=== PATIENT | female | born 1980 | race Caucasian/White ===

== ENCOUNTER 2016-12-01 13:37 | Emergency (ER) | payer MEDICARE, OTHER ==
[~2016-12-01 13:37] MED LIST: ALBUTEROL17 GM INH; BENTYL20 M1 PO; FERRO-TIME325 MG PO; FLECAINIDE ACET50 MG PO; LOMOTIL TABLET1 TAB PO; LOPRESSOR PO; MEGESTROL ACETA40 MG PO; METOPROLOL TAR25 MG PO; MOTRIN400 MG PO; NORVASC10 MG PO; ROXICODONE5 M1 PO; SYNTHROID137 MCG PO; ZOFRAN8 MG PO; ZYRTEC10 M2 PO
[2016-12-01 14:42] LABS: PARTIAL THROMBOPLASTIN TIME 27.7 SECONDS (23.5-31.3)
[2016-12-01 14:53] LABS: BASOPHIL% 0.4 % (0-2.5); EOSINOPHIL# 0.1 X10e3 (0-0.7); EOSINOPHIL% 1.9 % (0.0-7.0); HEMATOCRIT 41.3 % (35.0-45.0); HEMOGLOBIN 13.4 gm/dL (12.0-16.0); LYMPHOCYTE# 0.4 X10e3 (1.0-3.5); LYMPHOCYTE% 9.9 % (17.0-45.0); MEAN CELL VOLUME 96.2 FL (83-96); MEAN CORPUSCULAR HEMOGLOBIN 31.3 PG (28-34); MEAN CORPUSCULAR HGB CONC 32.6 g/dL (30-36); MEAN PLATELET VOLUME 9.8 FL (6.5-11.5); MONOCYTE# 0.1 X10e3 (0-1.0); MONOCYTE% 2.1 % (3.0-12.0); NEUTROPHIL# 3.9 X10e3 (1.5-7.1); NEUTROPHIL% 85.7 % (40-75); PLATELET COUNT 57 X10e3 (140-420); RED BLOOD COUNT 4.29 X10e (3.90-5.30); RED CELL DISTRIBUTION WIDTH 18.8 % (11.0-15.5); WHITE BLOOD COUNT 4.5 X10e3 (4.0-10.5)
[2016-12-01 14:54] LABS: DIFF IND YES
[2016-12-01 14:57] LABS: ANISOCYTOSIS SL; PLATELET ESTIMATE DECREASED (NORMAL)
== END 2016-12-01 15:41 | disposition home or self-care (01) ==
LOC: CED 13:37
PROVIDERS: Emergency Medicine
DX: R04.0 Epistaxis (principal); I10 Essential (primary) hypertension; I48.91 Unspecified atrial fibrillation; Z90.710 Acquired absence of both cervix and uterus; Z90.49 Acquired absence of other specified parts of digestive tract; Z85.038 Personal history of other malignant neoplasm of large intestine
CPT/HCPCS: 36415; 85025; 85610; 85730; 96372; 99283

== ENCOUNTER 2017-05-07 01:36 | Inpatient (IN) | payer MEDICARE ==
[~2017-05-07] VITALS: Ht 167.6 cm; Wt 113.4 kg
--- NOTE | ~2017-05-07 | HP ---
Unit #: [id number] #: [id number] Patient: JAMES SWEENEY [id number] [address] [address] [id number] I MR#: [id number] NAME: JAMES SWEENEY ROOM: 242 Age: 37 Sex: F Admission Date: 05/07/2017 : 1980 Attending Physician: Chari Hastings M.D. Primary Care Physician: Antelmo Gonzales M.D. HISTORY AND PHYSICAL CHIEF COMPLAINT Urinary tract infection, acute kidney injury, dehydration, increasing bilirubin. HISTORY This pleasant, 37-year-old female currently being treated with Stivarga for metastatic colon cancer, was transferred from [facility] emergency department for UTI. Patient has a history of metastatic colon cancer to liver status post 3 liver resections. She failed her previous chemotherapy and was recently started on Stivarga. She states that over the past week, she has been experiencing fevers, sweats, chills, decreased urinary output, decreased p.o. She also has been more fatigued and yesterday developed nausea and vomiting. She, therefore, went to [facility] emergency department where she was diagnosed with a urinary tract infection and acute kidney injury. She was given a dose of Rocephin and bolused with IV fluids. Her labs showed that her bilirubin was increasing. PAST MEDICAL HISTORY 1. Paroxysmal atrial fibrillation diagnosed when admitted 04/2016. Ejection fraction 50% to 55%, trace MR, mild TR on echo. 2. Essential hypertension. 3. Metastatic colon cancer to the liver and right lung status post total colectomy and three liver resections, undergoing chemotherapy. Patient states that she failed previous chemotherapy and was changed to Stivarga recently. Patient is status post three liver resections. 4. Thyroid cancer with total thyroidectomy and subsequent hypothyroidism. 5. Endometrial cancer, status post total abdominal hysterectomy. 6. Legally blind. 7. Previous eye surgery. 8. Cholecystectomy. 9. Colon surgery and liver resections. 10. Thyroidectomy. 11. Hysterectomy. ALLERGIES To Tylenol. HOME MEDICATIONS 1. Oxycodone 5 mg q.4 hours for increasing right flank pain. 2. Metoprolol 50 mg b.i.d. 3. Synthroid 0.137 mg daily. 4. Zyrtec 10 mg daily. Unit #: [id number] #: [id number] Patient: JAMES SWEENEY 5. Stivarga 40 mg b.i.d. 6. Norvasc 10 mg daily. FAMILY HISTORY Colon cancer. SOCIAL HISTORY The patient has been stable, lives with her sister. Lifelong nonsmoker. Does not drink alcohol. REVIEW OF SYSTEMS Notable for nausea, vomiting, fatigue, decreased urinary output, increasing right flank pain, fevers, sweats, chills, colon cancer, thyroid cancer, endometrial cancer, hypertension, PAF, abovementioned surgeries. All other systems were reviewed and otherwise negative. PHYSICAL EXAMINATION GENERAL APPEARANCE: Very pleasant, moderately obese, 37-year-old female with alopecia. VITAL SIGNS: Temperature 97.5, pulse 65, respirations 18, blood pressure 121/75, O2 saturation 96% prior to transfer. HEENT EXAMINATION: Left eye with dense cataract. Patient does have nystagmus and dysconjugate gaze. Pharynx: Somewhat poor dentition, but otherwise benign. NECK: Supple without adenopathy or thyromegaly. CHEST: Clear. Right CVA tenderness. CARDIAC: Normal S1 and S2 without definite murmur. There is a port in the right upper chest. ABDOMEN: Multiple well healed scars are noted. Tender right upper quadrant with hepatomegaly on exam. EXTREMITIES: Notable for deformity of the right ankle. NEURO EXAM: Patient is awake, alert, oriented x3. Her cranial nerves are notable for a dysconjugate gaze, horizontal nystagmus, and legally blind. She has equal strength throughout. Speech is fluent. DIAGNOSTIC STUDIES LABS PRIOR TO ARRIVAL: Hematocrit 35.8, normal white count. Platelet count is 56. Has been low in the past. SMA-12: Chloride 111, CO2 18, BUN 34, creatinine 1.48 (up from a BUN of 16, creatinine of 0.9 in September). Bilirubin 6.8, alk phos 357, AST 77. This is higher than our values in 2016. Magnesium 2.23. Lipase 75. Urinalysis: Positive leukocyte esterase, positive protein, bilirubin, 1+ bacteria, 5-10 red cells, 10-20 white cells. IMAGING: Chest x-ray: No acute disease. ASSESSMENT 1. Urinary tract infection. 2. Acute kidney injury/dehydration. 3. Metastatic colon cancer to liver and right lung with increasing bilirubin despite Stivarga. 4. Hypothyroidism, status post thyroidectomy for thyroid cancer. 5. Status post total abdominal hysterectomy for endometrial cancer. 6. Legally blind. 7. Essential hypertension. 8. Chronic thrombocytopenia. 9. Paroxysmal atrial fibrillation. Unit #: [id number] #: [id number] Patient: JAMES SWEENEY PLANS 1. IV fluids. 2. Rocephin. 3. SCDs for DVT prophylaxis. 4. Recheck labs this morning and check coags. 5. Consult patient's oncologist. Dictated by June Acuna/pc TD: 05/07/2017 06:49 JOB #: [id number] HISTORY AND PHYSICAL Page 1 of 1 X Chari Hastings MD X HISTORY AND PHYSICAL
--- NOTE | ~2017-05-07 | DS ---
Unit #: [id number] #: [id number] Patient: JAMES SWEENEY [id number] [address] [address] [id number] I MR#: [id number] NAME: JAMES SWEENEY ROOM: 225 Age: 37 Sex: F Admission Date: 05/07/2017 : 1980 Discharge Date: 05/13/2017 Attending Physician: Ryann Wild M.D. Primary Care Physician: Antelmo Gonzales M.D. DISCHARGE SUMMARY ADMISSION DIAGNOSES 1. Urinary tract infection. 2. Acute kidney injury/dehydration. 3. Metastatic colon cancer to liver and right lung with increasing bilirubin despite Stivarga. 4. Hypothyroidism, status post thyroidectomy for thyroid cancer. 5. Status post abdominal hysterectomy for endometrial cancer. 6. Legally blind. 7. Essential hypertension. 8. Chronic thrombocytopenia. 9. Paroxysmal atrial fibrillation. DISCHARGE DIAGNOSES 1. Urinary retention, resolved. 2. Extended spectrum beta lactamases Escherichia coli urinary tract infection, completed five days of IV meropenem. 3. Metastatic colon cancer to liver and right lung. 4. Stomatitis, secondary to recent Stivarga therapy. 5. Acute kidney injury/dehydration, resolved. CONSULTANTS 1. Mitchell Townsend M.D., Hematology/Oncology. 2. Registered dietitian. CONDITION Stable. DISPOSITION Home with family. DISCHARGE MEDICATIONS 1. Zofran ODT 4 mg p.o. q.6 hours p.r.n. nausea. 2. Amlodipine besylate 10 mg p.o. daily. 3. Toprol XL 50 mg p.o. b.i.d. 4. Robitussin 10 mL p.o. q.4 hours p.r.n. cough over the counter. 5. Roxicodone 5 mg p.o. q.6 hours as needed for pain per home prescription, no prescription written today. 6. Synthroid 137 mcg p.o. daily. 7. Gina's Magic Mouthwash 5 mL gargle and swish for mucositis/stomatitis q.i.d. p.r.n. mouth soreness. 8. The patient is not to resume Stivarga 40 mg p.o. q.i.d. until advised to do so by Dr. Moreno and Dr. Townsend. DISCHARGE INSTRUCTIONS Unit #: [id number] #: [id number] Patient: JAMES SWEENEY 1. Patient is to follow up with Dr. Moreno/Dr. Townsend per their instructions for further oncologic evaluation and management. 2. Patient is not to resume Stivarga until advised to do so by her oncologist. 3. Patient is to call and schedule a followup appointment with her primary care physician in five to seven days. 4. Patient is to continue the current diet recommendation until mouth sores heal, specifically this is regular diet with soft moist foods either cold or at room temperature. She is to avoid acidic, spicy foods, and caffeinated/carbonated drinks. She may use ice chips or popsicles as desired. She is to encourage adequate fluid intake. Please note, the patient ordered chocolate Ensure Enlive daily, and patient may continue this at home after discharge. HOSPITAL COURSE The patient is a 37-year-old female, who was transferred to [facility] from [facility] Emergency Department for further evaluation and management of urinary tract infection. The patient is known to have a history of metastatic colon cancer to the liver and history of three liver resections. She failed previous chemotherapy and was recently started on Stivarga by her oncologist. The patient was noted to develop fatigue as well as nausea and vomiting in addition to fever, sweats, chills, and decreased urinary output, and decreased p.o. intake. Upon presentation to [facility] Emergency Department, she was diagnosed with a UTI as well as ABRAM. She was treated with bolused IV fluids as well as Rocephin IV. Patient was also noted to have hyperbilirubinemia which was increasing at that time. Please refer to history and physical report for complete details. Patient was admitted to the hospital for further evaluation and management of her condition. Urine culture and sensitivity returned positive for ESBL E. coli UTI and the patient was treated with IV meropenem 500 mg IV q.8 hours with start date May 09, 2017. Today is her fifth day of IV antibiotic therapy for urinary tract infection. The patient initially required placement of a Lo catheter. The catheter was discontinued this morning and the patient is voiding without difficulty or complaint at this time. Per discussion with Dr. Wild, the patient's IV meropenem will be discontinued as this is day five of IV antibiotic therapy. Please refer to discharge and followup instructions above. Patient was noted to have an acute kidney injury secondary to dehydration from decreased p.o. intake on admission. The patient's creatinine was as high as 1.3, but is at 1 today. She is tolerating food and fluids well, although she has experienced stomatitis/mucositis likely secondary to recent Stivarga therapy. Patient was started on Gina's Magic Mouthwash yesterday and registered dietitian was consulted for recommendations to assist with maintenance of oral intake. Patient stating her mouth feels better today. She will continue Gina's Magic Mouthwash as directed and as needed at home. She has been advised to continue her current diet recommendations as dictated above until mouth sores heal. She is afebrile with vital signs stable. She has been evaluated both by Dr. Townsend and Dr. Widl today and cleared for discharge home. Dictated by... Gloria Mcknight A.P.R.N. for Ryann Wild M.D. Unit #: [id number] #: [id number] Patient: JAMES SWEENEY CATHY/katina TD: 05/14/2017 08:57 JOB #: [id number] DISCHARGE SUMMARY Page 1 of 1 X Gloria Mcknight APRN X DISCHARGE SUMMARY
--- NOTE | ~2017-05-07 | A ---
[facility] Nutrition Therapy DATE: 05/12/17 Patient: JAMES SWEENEY Physician: DORINA Address: [address] Room/Bed: [address] [place] [address], Zip: [place] [address] Admit Date: 05/07/17 Date of : [birth year] Height: 5 6 Weight: 249 113.39 NUTRITIONAL ASSESSMENT: REASON: Consult re: "chemo-related stomatitis, recs to help w/ PO intake" Admitting dx: 37 y/o female admitted with UTI, ABRAM, dehydration PMH: PAF, HTN, colon cancer s/p total colectomy w/ mets to R lung and liver s/p 3 liver resections on chemotherapy, thyroid and endometrial cancer s/p thyroidectomy and hysterectomy, della, legally blind L eye Anthropometrics: Ht: 66", Wt: 249 lbs, BMI: 40.4 (stage III obese) Labs: BUN 28, AST 105, ALT 42 Meds: IV Abx, loperamide, solu-cortef I/O & Bowel function: BM 05/11, - N/V Skin Integrity: Reviewed; no nutritionally significant issues, no edema Estimated Nutrition Needs: Increased due to cancer Assessment: Chart reviewed, events noted. See admitting dx and PMH as stated above. Patient has multiple types of cancer, most notably colon cancer with mets to liver and R lung, currently on chemotherapy. Over the past 2 days she has developed stomatitis due to her chemo treatment which has been affecting her PO intake. RD consulted to provide ways to help with PO intake. Of note, high BMI was previously documented by RD on 05/07/17. She is on a regular diet, reports consuming 3 meals per day but with increased difficulty and uncomfortableness. She scored 0 points on the malnutrition risk screen and denies any recent weight loss. She is morbidly obese, however has increased nutrient needs. Prior to admission, she had reported a decrease in PO intake and N/V for 1 week, which is improved. She is legally blind and lives with her sister. RD discussed ways to help with stomatitis and improve oral intake, including consuming soft, moist foods either cold or room temp. Suggested avoidance of rough/coarse foods, acidic/spicy foods, caffeinated/carbonated drinks. Mouth wash to treat her condition has been ordered, but she states she has not yet received it. RD encouraged sucking on ice or popsicles and staying well hydrated. The patient was given a handout on the topics discussed with RD contact info. She is amenable to trying Ensure daily to help meet nutritional needs. She showed good understanding and motivation for the education provided. See recs below. Dx: Predicted suboptimal energy intake r/t stomatitis AEB RD consult, need for diet education and daily ONS. [facility] Nutrition Therapy DATE: 05/12/17 Patient: JAMES SWEENEY Physician: DORINA Address: [address] Room/Bed: [address] [place] [address], Zip: [place] [address] Admit Date: 05/07/17 Date of : [birth year] Height: 5 6 Weight: 249 113.39 Intervention: Daily ONS, diet education, mouth wash Monitoring, Evaluation and Goals: 1. Adequate oral intake 50-100% of meals. 2. Improve oral condition (treatment of stomatitis). Monitor: per protocol, criteria to determine if above goals met Recommendations: 1. Continue regular diet. Encourage soft, moist foods either cold or at room temperature. Avoid acidic/spicy foods and caffeinated/carbonated drinks. Provide ice chips or popsicles as desired. Encourage adequate fluid intake. 2. Daily mouth wash to treat stomatitis. 3. RD ordered daily chocolate Ensure Enlive. Will follow hospital course Mild-moderate nutrition risk Respectfully, Rebekah Smith RD, MARY [facility] cc: client file
--- NOTE | ~2017-05-07 | MR145 ---
[facility] A Service of [facility] & [facility] RADIOLOGY TEXT RESULTS PATIENT: JAMES SWEENEY LOCATION: C2A 242-01 : [birth year] UNIT #: [id number] AGE: [address]: Ryann Wild MD SEX: F ORDER DR: [id number] [facility] [address] [facility] [place], [place] [address] [id number] I MR#: [id number] Acc #: [id number] NAME: JAMES SWEENEY : 1980 SEX: F STUDY DATE/TIME: 05/07/2017 15:11 UNIT: C2 ROOM: 242 STUDY DESCRIPTION: MR MRCP WWo Contrast Attending Physician: Ryann Wild M.D. Ordering Physician: Mitchell Townsend M.D. Primary Care Physician: Antelmo Gonzales M.D. MRI CENTER REPORT This report is preliminary unless electronic signature is present. EXAM MRI abdomen without and with contrast, MRCP. DATE 05/07/2017 HISTORY 37-year-old female with a history of metastatic colon cancer to the liver and right lung with increasing bilirubin levels. Urinary tract infection. History of previous 3 liver resections. Undergoing chemotherapy. COMPARISON CT abdomen and pelvis with contrast 04/03/2017, 12/18/2016. PROCEDURE Multiplanar, multisequence imaging was obtained of the abdomen without and with contrast. 20 mL MultiHance was administered intravenously for the exam. FINDINGS Right hepatectomy changes are present. Three low signal intensity nonenhancing lesions are demonstrated within the liver. The dominant at the dome measures 4.9 x 2.5 cm, and another just inferior to this measures 1.3 cm, and another located more medially measures 1.2 cm. Allowing for respiratory motion degradation and differences in slice selection, these are probably not significantly changed since 04/03/2017. No new liver lesions are identified. Development of a small quantity of upper abdominal ascites. Small right pleural effusion has developed layering to a depth of 1.5 cm and there is posterior right basilar atelectasis or infiltrate. Spleen remains enlarged but stable at 16.2 cm craniocaudally. Pancreas, right adrenal, and bilateral kidneys are within normal limits. Left adrenal lesion STS. [facility] A Service of [facility] & [facility] RADIOLOGY TEXT RESULTS PATIENT: JAMES SWEENEY LOCATION: [facility] 242-01 : [birth year] UNIT #: [id number] AGE: [address]: Ryann Wild MD SEX: F ORDER DR: measuring about 2.4 cm on today's examination is unchanged and demonstrates contrast enhancement consistent with metastatic disease. Mildly prominent lymph node within the right pericardial fat pad measures 1.3 x 1.0 cm, nonspecific but unchanged from prior. MRCP demonstrates no abnormal intrahepatic or extrahepatic biliary ductal dilation. The gallbladder is surgically absent. No abnormal bowel wall thickening is identified. Portions of the colon are surgically absent, demonstrated to better advantage on previous CT exam. IMPRESSION 1. Right hepatectomy changes. The 3 lesions within the residual liver are not appreciably changed in size or morphology, allowing for differences in technique and respiratory motion degradation, compared to the 04/03/2017 examination. Likewise, left adrenal mass, and mildly enlarged right pericardial fat pad lymph node appears stable. 2. Interval development of a small quantity of upper abdominal ascites. 3. Development of a small right pleural effusion with right basilar atelectasis or infiltrate. 4. Stable splenomegaly. 5. Cholecystectomy changes. No abnormal biliary dilation. Dictated by... Danielle Meraz M.D. THIS IS AN ELECTRONICALLY VERIFIED REPORT Danielle Meraz M.D. at 05/08/2017 8:54 AM LILIANA/carey TD: 05/08/2017 00:08 JOB #: [id number] MRI CENTER REPORT Page 1 of 1 COPY
--- NOTE | ~2017-05-07 | CO ---
Unit #: [id number] #: [id number] Patient: CORINNE CLEVELAND [id number] [address] [address] [id number] I MR#: [id number] NAME: CORINNE CLEVELAND ROOM: 242 Age: 37 Sex: F Admission Date: 05/07/2017 : 1980 Attending Physician: Ryann Wild M.D. Primary Care Physician: Antelmo Gonzales M.D. Requesting Physician: Chari Hastings M.D. Consultation Date: 05/07/2017 CONSULTATION REPORT REASON FOR CONSULTATION Metastatic colon cancer with a history of familial polyposis, please evaluate. HISTORY OF PRESENT ILLNESS Corinne Cleveland is well known with a history of longstanding metastatic colon cancer and familial polyposis coli, was currently on treatment with Stivarga. She was admitted to the hospital after being transferred from [facility] emergency room where she was admitted with fever, sweats, chills, decreased urine output along with nausea and vomiting. In the emergency room, she was found to have a urinary tract infection and is currently on IV antibiotics. Her complete metabolic panel done during this admission showed her bilirubin was 6.8, leading in part to this consultation. Ms. Cleveland tells me she feels slightly better today. She was started on regorafenib (Stivarga) on 04/16/2017 for progressive disease. Bilirubin on 04/07/2017 was normal at 1, her alkaline phosphatase of 518 and CA level was 20.4. On 04/30/2017, her bilirubin was 3, alkaline phosphatase was 444, AST 61, ALT of 32 and a CA level of 84.6. Her chemistries today in the hospital show that her bilirubin is 6.8, albumin 3.2, AST 73, ALT is 32 and alkaline phosphatase 304. Additionally, BUN of 34, creatinine is 1.4. PAST HISTORY 1. Familial polyposis coli. 2. Total proctocolectomy. 3. She also had extensive liver resections as part of her metastatic colon cancer and has had multiple lines of treatment with Stivarga the most recent. Other medical problems include: 4. Paroxysmal atrial fibrillation. 5. Essential hypertension. 6. Thyroid cancer with total thyroidectomy and subsequent hypothyroidism. 7. Endometrial cancer for which she had total abdominal hysterectomy. 8. She is legally blind. PAST SURGICAL HISTORY Includes: 1. Cholecystectomy prior to her diagnosis of colon cancer. 2. Colon surgery and liver resections. 3. Thyroid surgery with thyroidectomy. 4. Hysterectomy. ALLERGIES Unit #: [id number] #: [id number] Patient: CORINNE CLEVELAND She is allergic to Tylenol. MEDICATIONS Medications at the time of admission to the hospital were reviewed by me and include: 1. Zofran ODT 4 mg q.6. 2. Oxycodone 5 mg p.o. q.6. 3. Synthroid 137 mcg p.o. daily. 4. Norvasc 10 mg daily. 5. Toprol XL 50 mg twice a day. 6. Stivarga 160 mg p.o. daily which will be held during this admission. FAMILY HISTORY Notable for colon cancer in paternal grandmother as well as the father who of colon cancer and liver mets. She has two siblings, one of whom has had colonoscopy with no polyposis. SOCIAL HISTORY Never smoker. Does not drink any alcohol. REVIEW OF SYSTEMS 14-point was taken. CONSTITUTIONAL: As discussed above. EYES: Negative. Blind in left eye. EARS, NOSE, MOUTH AND THROAT: Negative. CARDIOVASCULAR: Negative. RESPIRATORY: Negative. GASTROINTESTINAL: As discussed. GENITOURINARY: Negative. SKIN: Negative. LYMPHATIC: Negative. PSYCHIATRIC: Negative. ENDOCRINE: Negative. PHYSICAL EXAMINATION GENERAL: On examination, she is a very pleasant middle aged woman, awake, alert, oriented x3. VITAL SIGNS: Temperature is 99.2, pulse is 95, respirations 20, blood pressure 109/68. Pain is 6 on a scale of 10. HEENT: Shows legally blind in left eye. Right pupil is round and reacts well to light. She is pale and icteric. Mucous membranes are slightly dry. NECK: With no adenopathy, JVD, thyromegaly. CARDIOVASCULAR SYSTEM: First and second heart sounds are heard and regular without any murmurs, gallops or rubs. LUNGS: Chest expansion symmetric. Bilateral equal air entry. Normal breath sounds. ABDOMEN: Soft, nontender. Liver and spleen not palpable. EXTREMITIES: Warm with good pulses. No edema, cyanosis or clubbing. NEUROLOGIC EXAMINATION: She is awake, alert, oriented x3 without any focal findings. SKIN: Jaundiced. LYMPHATIC: Negative. PSYCHIATRIC: Normal affect. DIAGNOSTIC STUDIES RADIOLOGY: Pending. Unit #: [id number] #: [id number] Patient: CORINNE CLEVELAND LABS: As discussed in detail above. ASSESSMENT AND PLAN Corinne Cleveland is 37 years old with a history of metastatic colon cancer with extensive prior treatment with a history of familial polyposis, in part responsible for legal blindness of her left eye, admitted with fever, nausea and vomiting with findings of urinary tract infection as well as worsening liver function tests. She also has a skin rash with involving her neck and upper arms likely relate to the Stivarga which will be temporarily discontinued. I had an extensive discussion with the patient and sister, she needs visualization of her liver and biliary tract to look for other contributing etiologies to hyperbilirubinemia including stones and liver abscess. Given her decrease in renal function, plan to do an MRI and MRCP with contrast. Based upon that, we will consult GI. I agree with IV fluids and IV antibiotics. Discussed her with pain management. Continue home pain medications. Discussed about hypertoxicity of Stivarga. Will temporarily hold Stivarga until the situation with her liver and etiology for hyperbilirubinemia is better established. Thank you for allowing me to participate in her care. Dictated by... June Rodriguez/rivera TD: 05/08/2017 08:08 JOB #: [id number] CONSULTATION REPORT Page 1 of 1 X Mitchell Townsend MD X CONSULTATION REPORT
--- NOTE | ~2017-05-07 | BMI ---
[facility] Nutrition Therapy DATE: 05/07/17 Patient: JAMES SWEENEY Physician: DORIAN Address: [address] Room/Bed: [address] [place] [address], Zip: [place] [address] Admit Date: 05/07/17 Date of : [birth year] Height: 5 6 Weight: 249 113.39 HIGH BMI NOTE: DX: 37 y/o female admitted with ABRAM ANTHROPOMETRICS: Ht: 66", Wt: 113.4 kg, BMI: 40.4 (stage III obese) DIET: NPO (previously on regular diet) INTERVENTION: Restricted diet, meds/fluids per MD RECOMMENDATIONS: Consider healthy heart diet to promote a gradual weight loss towards a healthy BMI range. Respectfully, Rebekah Smith RD, LD [facility] Services [facility] cc: client file
[2017-05-07] MEDS ORDERED: ZOFRAN ODT4 MG PO (05:03)
[2017-05-07] MEDS ORDERED: ROXICODONE5 M1 PO (05:04)
[2017-05-07] MEDS ORDERED: NORVASC10 MG PO (05:05)
[2017-05-07] MEDS ORDERED: SYNTHROID137 MCG PO (05:05)
[2017-05-07] MEDS ORDERED: TOPROL XL50 MG PO (05:07)
[2017-05-07] MEDS ORDERED: STIVARGA40 MG PO (05:08)
[2017-05-07 06:05] LABS: BASOPHIL% 0.5 % (0-2.5); EOSINOPHIL# 0.4 X10e3 (0-0.7); EOSINOPHIL% 3.4 % (0.0-7.0); HEMATOCRIT 37.2 % (35.0-45.0); HEMOGLOBIN 12.2 gm/dL (12.0-16.0); LYMPHOCYTE# 0.7 X10e3 (1.0-3.5); LYMPHOCYTE% 6.4 % (17.0-45.0); MEAN CELL VOLUME 93.7 FL (83-96); MEAN CORPUSCULAR HEMOGLOBIN 30.8 PG (28-34); MEAN CORPUSCULAR HGB CONC 32.9 g/dL (30-36); MEAN PLATELET VOLUME 9.2 FL (6.5-11.5); MONOCYTE# 0.7 X10e3 (0-1.0); MONOCYTE% 6.6 % (3.0-12.0); NEUTROPHIL# 8.6 X10e3 (1.5-7.1); NEUTROPHIL% 83.1 % (40-75); PLATELET COUNT 57 X10e3 (140-420); RED BLOOD COUNT 3.96 X10e (3.90-5.30); RED CELL DISTRIBUTION WIDTH 16.1 % (11.0-15.5); WHITE BLOOD COUNT 10.3 X10e3 (4.0-10.5)
[2017-05-07 06:14] LABS: DIFF IND YES
[2017-05-07 06:16] LABS: INR 1.1; PARTIAL THROMBOPLASTIN TIME 30.8 SECONDS (23.5-31.3); PROTHROMBIN TIME (PATIENT) 11.4 SECONDS (10.0-11.7)
[2017-05-07 06:36] LABS: ALBUMIN SERUM 3.2 g/dL (3.5-5.0); BILIRUBIN,TOTAL 6.8 mg/dL (0.2-2.0); BUN/CREATININE RATIO 24.28; CREATININE SERUM 1.4 mg/dL (0.6-1.4); GLOM FILT RATE Estimated 47.9 mL/min (>60); POTASSIUM 4.9 mmol/L (3.5-5.1); PROTEIN TOTAL SERUM 6.3 g/dL (6.0-8.3)
[2017-05-07 06:46] LABS: PLATELET ESTIMATE DECREASED (NORMAL)
[2017-05-07 06:47] LABS: ANISOCYTOSIS SL
[2017-05-08 06:43] LABS: HEMATOCRIT 31.9 % (35.0-45.0); HEMOGLOBIN 10.7 gm/dL (12.0-16.0); MEAN CELL VOLUME 94.7 FL (83-96); MEAN CORPUSCULAR HEMOGLOBIN 31.9 PG (28-34); MEAN CORPUSCULAR HGB CONC 33.7 g/dL (30-36); MEAN PLATELET VOLUME 9.9 FL (6.5-11.5); RED BLOOD COUNT 3.37 X10e (3.90-5.30); RED CELL DISTRIBUTION WIDTH 16.5 % (11.0-15.5)
[2017-05-08 06:54] LABS: ALBUMIN SERUM 2.6 g/dL (3.5-5.0); BILIRUBIN,TOTAL 3.9 mg/dL (0.2-2.0); BUN/CREATININE RATIO 21.53; CALCIUM SERUM 7.7 mg/dL (8.4-10.2); CREATININE SERUM 1.3 mg/dL (0.6-1.4); GLOM FILT RATE Estimated 52.4 mL/min (>60); POTASSIUM 4.6 mmol/L (3.5-5.1); PROTEIN TOTAL SERUM 5.3 g/dL (6.0-8.3)
[2017-05-09 06:20] LABS: BASOPHIL% 0.5 % (0-2.5); EOSINOPHIL% 10.6 % (0.0-7.0); HEMOGLOBIN 10.6 gm/dL (12.0-16.0); LYMPHOCYTE# 1.1 X10e3 (1.0-3.5); LYMPHOCYTE% 11.8 % (17.0-45.0); MEAN CELL VOLUME 95.5 FL (83-96); MEAN CORPUSCULAR HEMOGLOBIN 31.6 PG (28-34); MEAN CORPUSCULAR HGB CONC 33.1 g/dL (30-36); MEAN PLATELET VOLUME 9.6 FL (6.5-11.5); MONOCYTE# 0.6 X10e3 (0-1.0); MONOCYTE% 6.9 % (3.0-12.0); NEUTROPHIL# 6.4 X10e3 (1.5-7.1); NEUTROPHIL% 70.2 % (40-75); RED BLOOD COUNT 3.35 X10e (3.90-5.30); RED CELL DISTRIBUTION WIDTH 16.7 % (11.0-15.5); WHITE BLOOD COUNT 9.1 X10e3 (4.0-10.5)
[2017-05-09 06:24] LABS: DIFF IND NO; PLATELET COUNT 50 X10e3 (140-420)
[2017-05-09 06:39] LABS: ALBUMIN SERUM 2.6 g/dL (3.5-5.0); BILIRUBIN,TOTAL 3.6 mg/dL (0.2-2.0); BUN/CREATININE RATIO 23.63; CALCIUM SERUM 7.7 mg/dL (8.4-10.2); CREATININE SERUM 1.1 mg/dL (0.6-1.4); GLOM FILT RATE Estimated 64.1 mL/min (>60); PROTEIN TOTAL SERUM 5.3 g/dL (6.0-8.3)
[2017-05-10 03:14] LABS: HEMATOCRIT 29.6 % (35.0-45.0); HEMOGLOBIN 9.6 gm/dL (12.0-16.0); MEAN CELL VOLUME 95.3 FL (83-96); MEAN CORPUSCULAR HGB CONC 32.5 g/dL (30-36); MEAN PLATELET VOLUME 10.5 FL (6.5-11.5); RED BLOOD COUNT 3.1 X10e (3.90-5.30); WHITE BLOOD COUNT 7.3 X10e3 (4.0-10.5)
[2017-05-10 03:36] LABS: BUN/CREATININE RATIO 23.84; CALCIUM SERUM 7.8 mg/dL (8.4-10.2); CREATININE SERUM 1.3 mg/dL (0.6-1.4); GLOM FILT RATE Estimated 52.4 mL/min (>60); POTASSIUM 4.8 mmol/L (3.5-5.1)
[2017-05-11 03:21] LABS: BUN/CREATININE RATIO 25.38; CALCIUM SERUM 7.8 mg/dL (8.4-10.2); CREATININE SERUM 1.3 mg/dL (0.6-1.4); GLOM FILT RATE Estimated 52.4 mL/min (>60); POTASSIUM 4.7 mmol/L (3.5-5.1)
[2017-05-11 03:24] LABS: BASOPHIL% 0.3 % (0-2.5); EOSINOPHIL# 0.9 X10e3 (0-0.7); EOSINOPHIL% 14.5 % (0.0-7.0); HEMATOCRIT 29.7 % (35.0-45.0); HEMOGLOBIN 9.9 gm/dL (12.0-16.0); LYMPHOCYTE# 1.3 X10e3 (1.0-3.5); LYMPHOCYTE% 20.1 % (17.0-45.0); MEAN CELL VOLUME 94.7 FL (83-96); MEAN CORPUSCULAR HEMOGLOBIN 31.5 PG (28-34); MEAN CORPUSCULAR HGB CONC 33.3 g/dL (30-36); MEAN PLATELET VOLUME 9.8 FL (6.5-11.5); MONOCYTE# 0.5 X10e3 (0-1.0); MONOCYTE% 7.5 % (3.0-12.0); NEUTROPHIL# 3.6 X10e3 (1.5-7.1); NEUTROPHIL% 57.6 % (40-75); RED BLOOD COUNT 3.14 X10e (3.90-5.30); RED CELL DISTRIBUTION WIDTH 17.1 % (11.0-15.5); WHITE BLOOD COUNT 6.2 X10e3 (4.0-10.5)
[2017-05-11 03:26] LABS: DIFF IND NO; PLATELET COUNT 45 X10e3 (140-420)
[2017-05-12 03:25] LABS: BASOPHIL% 0.4 % (0-2.5); EOSINOPHIL# 0.5 X10e3 (0-0.7); EOSINOPHIL% 10.1 % (0.0-7.0); HEMATOCRIT 27.9 % (35.0-45.0); HEMOGLOBIN 9.1 gm/dL (12.0-16.0); LYMPHOCYTE# 1.4 X10e3 (1.0-3.5); LYMPHOCYTE% 26.5 % (17.0-45.0); MEAN CELL VOLUME 96.6 FL (83-96); MEAN CORPUSCULAR HEMOGLOBIN 31.6 PG (28-34); MEAN CORPUSCULAR HGB CONC 32.7 g/dL (30-36); MEAN PLATELET VOLUME 10.2 FL (6.5-11.5); MONOCYTE# 0.4 X10e3 (0-1.0); MONOCYTE% 8.3 % (3.0-12.0); NEUTROPHIL# 2.8 X10e3 (1.5-7.1); NEUTROPHIL% 54.7 % (40-75); RED BLOOD COUNT 2.89 X10e (3.90-5.30); RED CELL DISTRIBUTION WIDTH 17.4 % (11.0-15.5); WHITE BLOOD COUNT 5.1 X10e3 (4.0-10.5)
[2017-05-12 03:27] LABS: DIFF IND NO; PLATELET COUNT 41 X10e3 (140-420)
[2017-05-12 04:08] LABS: BUN/CREATININE RATIO 27.27; CALCIUM SERUM 6.9 mg/dL (8.4-10.2); CREATININE SERUM 1.1 mg/dL (0.6-1.4); GLOM FILT RATE Estimated 64.1 mL/min (>60); POTASSIUM 3.7 mmol/L (3.5-5.1)
[2017-05-12 12:30] LABS: ALBUMIN SERUM 2.3 g/dL (3.5-5.0); BILIRUBIN,TOTAL 3.3 mg/dL (0.2-2.0); CALCIUM SERUM 7.4 mg/dL (8.4-10.2); GLOM FILT RATE Estimated 71.9 mL/min (>60); POTASSIUM 4.2 mmol/L (3.5-5.1); PROTEIN TOTAL SERUM 4.8 g/dL (6.0-8.3)
[2017-05-13 06:20] LABS: HEMATOCRIT 30.9 % (35.0-45.0); HEMOGLOBIN 10.3 gm/dL (12.0-16.0); MEAN CELL VOLUME 95.3 FL (83-96); MEAN CORPUSCULAR HEMOGLOBIN 31.7 PG (28-34); MEAN CORPUSCULAR HGB CONC 33.2 g/dL (30-36); MEAN PLATELET VOLUME 8.9 FL (6.5-11.5); RED BLOOD COUNT 3.24 X10e (3.90-5.30); RED CELL DISTRIBUTION WIDTH 17.4 % (11.0-15.5); WHITE BLOOD COUNT 7.5 X10e3 (4.0-10.5)
[2017-05-13 07:04] LABS: ALBUMIN SERUM 2.3 g/dL (3.5-5.0); BILIRUBIN,TOTAL 2.7 mg/dL (0.2-2.0); CALCIUM SERUM 7.3 mg/dL (8.4-10.2); GLOM FILT RATE Estimated 71.9 mL/min (>60); MAGNESIUM 2.4 mg/dL (1.6-3.0); POTASSIUM 4.3 mmol/L (3.5-5.1); PROTEIN TOTAL SERUM 4.7 g/dL (6.0-8.3)
[2017-05-13] MEDS ORDERED: COUGH SYRU100 MG/5 M PO (14:54)
[2017-05-13] MEDS ORDERED: [UNRECOGNIZED DRUG - OTHER] PO (14:57)
== END 2017-05-13 16:15 | disposition home or self-care (01) | DRG 375 ==
LOC: C2A 01:36 → CEDOF 01:36 → C2A 03:10 → C4C 05-09 18:20 → C2A 05-12 13:10
PROVIDERS: Internal Medicine; Internal Medicine Hematology & Oncology; Nurse Practitioner
DX: C18.9 Malignant neoplasm of colon, unspecified (principal); C78.7 Secondary malignant neoplasm of liver and intrahepatic bile duct; N17.9 Acute kidney failure, unspecified; C78.01 Secondary malignant neoplasm of right lung; D69.6 Thrombocytopenia, unspecified; Z68.41 Body mass index [BMI] 40.0-44.9, adult; E66.01 Morbid (severe) obesity due to excess calories; N39.0 Urinary tract infection, site not specified; I48.0 Paroxysmal atrial fibrillation; B96.20 Unspecified Escherichia coli [E. coli] as the cause of diseases classified elsewhere; E86.0 Dehydration; I10 Essential (primary) hypertension; Z16.12 Extended spectrum beta lactamase (ESBL) resistance; Z85.850 Personal history of malignant neoplasm of thyroid; Z85.89 Personal history of malignant neoplasm of other organs and systems; E89.0 Postprocedural hypothyroidism; Z90.710 Acquired absence of both cervix and uterus; Z90.49 Acquired absence of other specified parts of digestive tract; H54.8 Legal blindness, as defined in USA; K12.1 Other forms of stomatitis; D64.9 Anemia, unspecified; Z80.0 Family history of malignant neoplasm of digestive organs; R33.9 Retention of urine, unspecified; L27.0 Generalized skin eruption due to drugs and medicaments taken internally; T50.995A Adverse effect of other drugs, medicaments and biological substances, initial encounter; Y92.9 Unspecified place or not applicable
CPT/HCPCS: 74183; 80048; 80053; 83735; 85025; 85027; 85610; 85730; 87086; 87088; 87186; 94640; 94760; A9577; J0696; J1642; J2185